=== PATIENT | male | born 1965 | race Two or more races ===

== ENCOUNTER → 2025-05-28 | Outpatient (CLI) | payer MEDICAID, SELFPAY ==
--- NOTE | 2025-05-28 10:30 | XR_ITS ---
Examination: Ultrasound liver elastography Date and time: May 20, 2025 1058 hours INDICATIONS: Type 2 diabetes diagnosis right lower abdominal pain beginning one year ago TECHNIQUE AND FINDINGS: Sonographic images liver including assessment tissue stiffness average Liver 11.9 cm, normal portal venous flow patent hepatic veins Gallbladder incidentally shows wall thickening 0.6 cm Tissue stiffness average 1.8 m/s mild to moderate liver fibrosis IMPRESSION: Mild to moderate liver fibrosis Suspicious for acalculous cholecystitis, suggest HIDA scan or MRCP follow-up
== END | disposition home or self-care (01) ==
LOC: CDIM 10:34
PROVIDERS: Referring Provider Physician Assistant; Visit Provider Physician Assistant
DX: K74.00 Hepatic fibrosis, unspecified (principal)
CPT/HCPCS: 76981